=== PATIENT | male | born 1985 | race African-American/Black ===

== ENCOUNTER 2023-08-27 14:12 | Inpatient (IN) ==
--- NOTE | 2023-08-27 14:18 | EKG ---
Test Reason : tachycardia Blood Pressure : */* mmHG Vent. Rate : 119 BPM Atrial Rate : 119 BPM P-R Int : 124 ms QRS Dur : 80 ms QT Int : 330 ms P-R-T Axes : 76 82 26 degrees QTc Int : 464 ms Sinus tachycardia Minimal voltage criteria for LVH, may be normal variant ( [place] ) Borderline ECG No previous ECGs available Confirmed by Edis Greco MD ([id number]) on 08/27/2023 2:44:51 PM Referred By: Confirmed By: Edis Greco MD
[2023-08-27 14:26] VITALS: BMI 20.8
--- NOTE | 2023-08-27 14:35 | DR.DING ---
HPI Time Seen Time Seen by Provider: 08/27/23 14:27 PCP Primary Care Physician: NFD Complaint Chief Complaint Doctors Comments: 29-year-old male brought in for evaluation. Patient with a history of drug misuse, clean for the past 2+. Per family patie nt stayed up all last night, having jerking activity. Patient denied drug use to them and to the triage nurse. He now admits to taking "Moly". Denies any pain. Denies recent illness, no fever, chills or URI symptoms. Denies any bowel or bladder issues. Chief Complaint:: pt brought by family stated he is under the influence of drugs but they are unsure what he has done or taken. Pt reports the pt has been awake all night, hallucinating, and not acting like himself. pt has hx of substance abuse but denies taking anything at this time. COVID-19 Coronavirus risk:travel/contact w/high risk person: No Has patient experienced Coronavirus symptoms: No Reviewed Nurses Notes Review: Yes Source History Provided: Patient and Family Member Mode of Arrival Mode of Arrival: Ambulatory Timing Onset of Chief Complaint: 08/26/23 PMH PMH Past Medical History: Yes Past Medical History: Anxiety and Hypertension Past Surgical History: No Family History History of Family Medical Conditions: No Social History Does patient currently use any type of tobacco product: Yes Have you used tobacco products in the last 12 months: Yes Type of Tobacco Use: Cigars Alcohol Use: DAILY Do you use any recreational Drugs:: No Lives With: Family Lives Where: Home Travel Risk Coronavirus risk:travel/contact w/high risk person: No Has patient experienced Coronavirus symptoms: No Infectious screening Have you traveled outside the country in the last 6 months?: No Isolation: Standard ROS Review of Systems Constitutional: No Symptoms Reported Eyes: No Symptoms Reported ENTM: No Symptoms Reported Respiratoy: Short of Breath Cardiovascular: No Symptoms Reported Gastrointestinal/Abdominal: No Symptoms Reported Genitourinary: No Symptoms Reported Neurological: No Symptoms Reported Musculoskeletal: Muscle Pain (twitching) Integumentary: No Symptoms Reported Hematologic/Lymphatic: No Symptoms Reported All Other Systems: Reviewed and Negative PE Vital signs Vitals: Vital Signs Temperature 98.3 F Pulse Rate 114 Pulse Rate 112 Pulse Rate 150 Pulse Rate 128 Pulse Rate 105 Pulse Rate 103 Pulse Rate 110 Pulse Rate 124 Pulse Rate 121 Respiratory Rate 57 Respiratory Rate 55 Respiratory Rate 56 Respiratory Rate 48 Respiratory Rate 46 Respiratory Rate 41 Respiratory Rate 51 Respiratory Rate 24 Respiratory Rate 44 Blood Pressure 161/87 Blood Pressure 128/88 O2 Sat by Pulse Oximetry 96 O2 Sat by Pulse Oximetry 94 O2 Sat by Pulse Oximetry 96 General General Appearance: Alert and In No Apparent Distress Head Head Exam: Normal Inspection, Atraumatic and Normocephalic Eyes Eye exam: PERRL and EOMI ENT ENT Exam: Normal Oropharynx and Mucous Membranes Moist Neck Neck Exam: Normal Inspection; negative Tenderness Respiratory Respiratory Exam: Normal Lung Sounds Bilat; negative Accessory Muscle Use or Respiratory Distress Cardiovascular Cardiovascular Exam: Regular Rate, Normal Rhythm and Normal Heart Sounds Abdominal Exam Abdominal Exam: Normal Bowel Sounds and Soft; negative Tenderness Extremities Extremities Exam: Normal Inspection; negative Tenderness or Edema Neurologic Neurological Exam: Alert, Oriented X3 and CN II-XII Intact; negative Motor Sensory Deficit Psychiatric Psychiatric Exam: Flat Affect Skin Skin Exam: Warm and Dry COURSE Treatment Treatment: 37 y/o male brought in by family for evaluation. Admits to taking Moly last pm. History of drug misuse in the past, reportedly clean for 2 years. Patient with some jerking activity, no true seizure. Presented for medical clearance prior to transfer to a psychiatric facility for drug usage. Workup i nitiated. Patient given IV fluids, IV Ativan 1 mg. 1510 -Labs overall acceptable, except for creatinine kinase. Has a markedly elevated level of 3,310, consistent with acute rhabdomyolysis, probably related to recent drug usage. Patient not medically cleared for transfer to any behavioral facilities. Recommend admission for IV hydration, and prevention of kidney injury. Discussed with on-call physician, Dr. Ventura, she accepts the admission. ROR Labs Reviewed Laboratory Results Reviewed?: Yes 08/27/23 14:25 08/27/23 14:25 Laboratory: WBC 8.5 X10^3/uL (3.6-10.0) 08/27/23 14:25 RBC 3.80 X10^6/uL (4.7-6.0) L 08/27/23 14:25 Hgb 10.6 g/dL (13.5-18.0) L 08/27/23 14:25 Hct 33.1 % (42.0-54.0) L 08/27/23 14:25 MCV 87.1 fL (80.0-100.0) 08/27/23 14:25 MCH 27.9 pg (27.0-34.0) 08/27/23 14:25 MCHC 32.0 g/dL (33.0-35.0) L 08/27/23 14:25 RDW 17.5 % (11.6-16.5) H 08/27/23 14:25 Plt Count 358 X10^3/uL (150.0-450.0) 08/27/23 14:25 MPV 7.6 fL (7.4-11.0) 08/27/23 14:25 Neut % (Auto) 68.5 % (42.0-75.0) 08/27/23 14:25 Lymph % (Auto) 17.1 % (21.0-51.0) L 08/27/23 14:25 [place] % (Auto) 13.5 % (0.0-13.0) H 08/27/23 14:25 Eos % (Auto) 0.1 % (0.9-2.9) L 08/27/23 14:25 Baso % (Auto) 0.8 % (0.2-1.0) 08/27/23 14:25 Neut # (Auto) 5.8 x10^3/uL (2.2-4.8) H 08/27/23 14:25 Lymph # (Auto) 1.5 X10^3/uL (1.3-2.9) 08/27/23 14:25 [place] # (Auto) 1.2 x10^3/uL (0.3-0.8) H 08/27/23 14:25 Eos # (Auto) 0.0 x10^3/uL (0.0-0.2) 08/27/23 14:25 Baso # (Auto) 0.1 X10^3/uL (0.0-0.1) 08/27/23 14:25 Absolute Nucleated RBC 0.1 /100WBC 08/27/23 14:25 Sodium 136 mmol/L (136-145) 08/27/23 14:25 Corrected Sodium TNP 08/27/23 14:25 Potassium 3.5 mmol/L (3.5-5.1) 08/27/23 14:25 Chloride 98 mmol/L (98-107) 08/27/23 14:25 Carbon Dioxide 27.4 mmol/L (21-32) 08/27/23 14:25 BUN 13 mg/dL (7-18) 08/27/23 14:25 Creatinine 1.48 mg/dL (0.70-1.30) H 08/27/23 14:25 Est GFR (MDRD) Af Amer > 60 (>60) 08/27/23 14:25 Est GFR (MDRD) Non-Af 57 (>60) L 08/27/23 14:25 Glucose 96 mg/dL (65-99) 08/27/23 14:25 Calcium 8.8 mg/dL (8.5-10.1) 08/27/23 14:25 Corrected Calcium TNP 08/27/23 14:25 Total Bilirubin 1.40 mg/dL (0.2-1.0) H 08/27/23 14:25 AST 80 Units/L (15-37) H 08/27/23 14:25 ALT 30 Units/L (12-78) 08/27/23 14:25 Alkaline Phosphatase 76 Units/L (46-116) 08/27/23 14:25 Creatine Kinase 3310 Units/L (39-308) H 08/27/23 14:25 Total Protein 8.2 g/dL (6.4-8.2) 08/27/23 14:25 Albumin 4.1 g/dL (3.4-5.0) 08/27/23 14:25 Globulin 4.1 g/dL (2.5-4.5) 08/27/23 14:25 Albumin/Globulin Ratio 1.0 Ratio (1.1-2.1) L 08/27/23 14:25 Specimen Type Clean catch urine 08/27/23 14:18 Urine Color Dark yellow (YELLOW) 08/27/23 14:18 Urine Appearance Hazy (CLEAR) 08/27/23 14:18 Urine pH 6.0 (5.0 - 8.0) 08/27/23 14:18 Ur Specific [place] 1.020 (1.000-1.030) 08/27/23 14:18 Urine Protein 3+ (NEGATIVE) 08/27/23 14:18 Urine Glucose (UA) Negative (NEGATIVE) 08/27/23 14:18 Urine Ketones 1+ (NEGATIVE) 08/27/23 14:18 Urine Blood 2+ (NEGATIVE) 08/27/23 14:18 Urine Nitrite Negative (NEGATIVE) 08/27/23 14:18 Urine Bilirubin 1+ (NEGATIVE) 08/27/23 14:18 Urine Urobilinogen 3+ (NORMAL) 08/27/23 14:18 Ur Leukocyte Esterase 1+ (NEGATIVE) 08/27/23 14:18 Urine RBC 5-10 /HPF (0-3) A 08/27/23 14:18 Urine WBC 0-2 /HPF (0-5) 08/27/23 14:18 Ur Squamous Epith Cells Numerous /HPF (NEGATIVE) 08/27/23 14:18 Amorphous Sediment 2+ /HPF (NEGATIVE) 08/27/23 14:18 Urine Bacteria 1+ /HPF (NEGATIVE) 08/27/23 14:18 Urine Mucus Moderate /HPF (NEGATIVE) 08/27/23 14:18 Ur Culture Indicated? No/not indicated 08/27/23 14:18 Salicylates < 2.8 mg/dL (2.8-20) L 08/27/23 14:25 Urine Opiates Screen Negative (NEG=<300) 08/27/23 14:18 Urine Methadone Screen Negative (NEG=<300) 08/27/23 14:18 Acetaminophen 0.0 ug/mL (10-30) L 08/27/23 14:25 Ur Barbiturates Screen Negative (NEG=<200) 08/27/23 14:18 Ur Phencyclidine Scrn Negative (NEG=<25) 08/27/23 14:18 Ur Amphetamines Screen Negative (NEG=<1000) 08/27/23 14:18 U Benzodiazepines Scrn Negative (NEG=<200) 08/27/23 14:18 Urine Cocaine Screen Negative (NEG=<300) 08/27/23 14:18 U Marijuana (THC) Screen Negative (NEG=<50) 08/27/23 14:18 Ethyl Alcohol mg/dL < 3.0 mg/dL (0-19.9) 08/27/23 14:25 Elevated CK, 3,310. EKG Rate: 119 [place]: Normal Rhythm: ST ST: Nonsp Opioid Opioid Risk Tool Age (Vincent box if 16-45): Yes History of Preadolescent Sexual Abuse: No Total: 1 Total Score Risk Category: Low Risk Copyright: June LR predicting aberrant behaviors Discharge Plan Diagnosis Discharge Problem: Rhabdomyolysis, Illicit drug use Discharge Plan Patient Disposition: 09 ADMITTED INPATIENT Condition: Stable Orders to Discharge Patient Discharge Orders: Transfer (Routine); Ordered 08/27/23 Ordered By: Blue Rodriguez
[2023-08-27 14:40] LABS: BASOPHILS # (AUTO) 0.1 X10^3/uL (0.0-0.1); BASOPHILS % (AUTO) 0.8 % (0.2-1.0); EOSINOPHILS % (AUTO) 0.1 % (0.9-2.9); HEMATOCRIT 33.1 % (42.0-54.0); HEMOGLOBIN 10.6 g/dL (13.5-18.0); LYMPHOCYTES # (AUTO) 1.5 X10^3/uL (1.3-2.9); LYMPHOCYTES % (AUTO) 17.1 % (21.0-51.0); MEAN CORPUSCULAR HEMOGLOBIN 27.9 pg (27.0-34.0); MEAN CORPUSCULAR VOLUME 87.1 fL (80.0-100.0); MEAN PLATELET VOLUME 7.6 fL (7.4-11.0); MONOCYTES # (AUTO) 1.2 x10^3/uL (0.3-0.8); MONOCYTES % (AUTO) 13.5 % (0.0-13.0); NEUTROPHILS # (AUTO) 5.8 x10^3/uL (2.2-4.8); NEUTROPHILS % (AUTO) 68.5 % (42.0-75.0); PLATELET COUNT 358 X10^3/uL (150.0-450.0); RED CELL DISTRIBUTION WIDTH 17.5 % (11.6-16.5); WHITE BLOOD COUNT 8.5 X10^3/uL (3.6-10.0)
[2023-08-27] MEDS: ATIVAN INJ 2 MG VIAL IVP ONE (14:41)
[2023-08-27 14:42] LABS: BILIRUBIN,URINE 1+ (NEGATIVE); BLOOD/HEMOGLOBIN,URINE 2+ (NEGATIVE); GLUCOSE, URINE NEGATIVE (NEGATIVE); KETONES,URINE 1+ (NEGATIVE); LEUKOCYTE ESTERASE ,URINE 1+ (NEGATIVE); NITRITES,URINE NEGATIVE (NEGATIVE); PROTEIN,URINE 3+ (NEGATIVE); UROBILINOGEN,URINE 3+ (NORMAL)
[2023-08-27 14:45] LABS: APPEARANCE,URINE HAZY (CLEAR); COLOR,URINE DARK YELLOW (YELLOW)
[2023-08-27] MEDS: ATIVAN INJ 2 MG VIAL ONE (14:45)
[2023-08-27 14:58] LABS: SALICYLATE < 2.8 mg/dL (2.8-20)
[2023-08-27 14:58] LABS: BACTERIA,URINE 1+ /HPF (NEGATIVE); SQUAMOUS EPITHELIAL CELL,UR NUMEROUS /HPF (NEGATIVE)
[2023-08-27 15:00] LABS: ALANINE AMINOTRANSFERASE 30 Units/L (12-78); ALBUMIN 4.1 g/dL (3.4-5.0); ALKALINE PHOSPHATASE 76 Units/L (46-116); ASPARTATE AMINO TRANSFERASE 80 Units/L (15-37); BLOOD UREA NITROGEN 13 mg/dL (7-18); CALCIUM 8.8 mg/dL (8.5-10.1); CARBON DIOXIDE 27.4 mmol/L (21-32); CHLORIDE 98 mmol/L (98-107); CREATININE 1.48 mg/dL (0.70-1.30); GLUCOSE 96 mg/dL (65-99); POTASSIUM 3.5 mmol/L (3.5-5.1); SODIUM 136 mmol/L (136-145); TOTAL PROTEIN 8.2 g/dL (6.4-8.2); eGFR NON BLACK RACES 57 (>60)
[2023-08-27 15:01] LABS: BLOOD ALCOHOL < 3.0 mg/dL (0-19.9)
[2023-08-27] MEDS ORDERED: NS 1,000 ML IV 1,000 ML ONE ×2 (15:20→16:08)
[2023-08-27] MEDS: NS 1,000 ML IV 1,000 ML IV ONE ×2 (15:37→17:10)
[2023-08-27] MEDS ORDERED: CONSULT PHARMACY - POTASSIUM & MAGNESIUM XX SCH (18:00)
[2023-08-27] MEDS: ATIVAN INJ 2 MG VIAL IVP PRN (18:10)
[2023-08-27] MEDS: NS 1,000 ML IV 1,000 ML IV SCH (18:39)
[2023-08-27] MEDS ORDERED: MAG-OX TAB PO SCH (21:00)
[2023-08-27] MEDS ORDERED: K-DUR TAB 20 MEQ PO SCH (21:00)
[2023-08-27] MEDS: MAGNESIUM SULFATE 1 GRAM/100 mL PREMIX 1 G/100 ML BAG IV SCH (21:06)
[2023-08-27] MEDS: K-RIDER 10 MEQ/100 ML WATER 10 MEQ/100 ML BAG IV SCH (21:06)
[2023-08-28 05:12] LABS: BASOPHILS # (AUTO) 0.1 X10^3/uL (0.0-0.1); BASOPHILS % (AUTO) 1.1 % (0.2-1.0); EOSINOPHILS % (AUTO) 0.4 % (0.9-2.9); HEMATOCRIT 30.2 % (42.0-54.0); HEMOGLOBIN 9.9 g/dL (13.5-18.0); LYMPHOCYTES # (AUTO) 1.4 X10^3/uL (1.3-2.9); LYMPHOCYTES % (AUTO) 19.5 % (21.0-51.0); MEAN CORPUSCULAR HEMOGLOBIN 28.6 pg (27.0-34.0); MEAN CORPUSCULAR HGB CONC 32.9 g/dL (33.0-35.0); MEAN PLATELET VOLUME 7.7 fL (7.4-11.0); MONOCYTES # (AUTO) 1.1 x10^3/uL (0.3-0.8); MONOCYTES % (AUTO) 15.8 % (0.0-13.0); NEUTROPHILS # (AUTO) 4.4 x10^3/uL (2.2-4.8); NEUTROPHILS % (AUTO) 63.2 % (42.0-75.0); PLATELET COUNT 333 X10^3/uL (150.0-450.0); RED BLOOD COUNT 3.47 X10^6/uL (4.7-6.0); RED CELL DISTRIBUTION WIDTH 17.3 % (11.6-16.5)
[2023-08-28 05:35] LABS: ALANINE AMINOTRANSFERASE 26 Units/L (12-78); ALBUMIN 3.3 g/dL (3.4-5.0); ALKALINE PHOSPHATASE 67 Units/L (46-116); ASPARTATE AMINO TRANSFERASE 64 Units/L (15-37); BLOOD UREA NITROGEN 11 mg/dL (7-18); CALCIUM 8.2 mg/dL (8.5-10.1); CARBON DIOXIDE 24.4 mmol/L (21-32); CHLORIDE 105 mmol/L (98-107); COR CA(FOR HYPOALB) 8.8 mg/dL (8.5-10.1); CREATININE 1.22 mg/dL (0.70-1.30); GLUCOSE 83 mg/dL (65-99); MAGNESIUM 2.3 mg/dL (2.0-2.9); POTASSIUM 4.2 mmol/L (3.5-5.1); SODIUM 139 mmol/L (136-145); TOTAL PROTEIN 6.9 g/dL (6.4-8.2); eGFR NON BLACK RACES > 60 (>60)
[2023-08-28 05:37] LABS: CREATINE KINASE 2621 Units/L (39-308)
[2023-08-28 09:06] LABS: RETICULOCYTE % 1.04 % (0.8-2.2)
--- NOTE | 2023-08-28 09:31 | DR.H&P ---
H&P History & Physical for Day of: H&P Date: 08/28/23 Chief Complaint Chief Complaint: AMS, behavior change Allergies Allergies Allergy/AdvReac Type Severity Reaction Status Date / Time No Known Allergies Allergy Verified 08/27/23 20:48 History of Present Illness History of Present Illness: Mr Davila is a 37y/o male with a PMH of substance use and anxiety was brought in my family due to patient actin different, hallucinating and anxious. He initially denied taking any drugs and reports being clean for 2 years. He later told the staff that he took "Moly". He states he was admitted at a detox facility before due to ETOH abuse. He also reports having anemia and has had work up including EGD but he does not recall the results. He reports noticing blood in his stools sometimes. Denies N/V/D or abdominal pain today. He was trying to get out and pull his IV yesterday but got a dose of ativan. He has been calm since then. Patient was noted to have elevated CK in the ER and was admitted for hydration. His CK today is 2621. Labs/imaging reviewed -Hgb 9.9 BUN/Cr:04/03. CK 2621 -UDS negative. Plan: continue hydration with NS. Will check anemia panel and FOBT. Ativan prn for anxiety. Replace electrolytes prn. Monitor AM labs/imaging. Past Medical History Past Medical History: Anxiety and Hypertension Social History Does patient currently use any type of tobacco product: Yes Have you used tobacco products in the last 12 months: Yes Type of Tobacco Use: Cigars Alcohol Use: DAILY Drug Use: Other Medications Home Medications: Home Medications Medication Instructions Recorded Confirmed Type NK 08/27/23 08/27/23 History Labs 08/28/23 04:30 08/28/23 04:30 Labs: Laboratory WBC 7.0 X10^3/uL (3.6-10.0) 08/28/23 04:30 RBC 3.47 X10^6/uL (4.7-6.0) L 08/28/23 04:30 Hgb 9.9 g/dL (13.5-18.0) L 08/28/23 04:30 Hct 30.2 % (42.0-54.0) L 08/28/23 04:30 MCV 87.0 fL (80.0-100.0) 08/28/23 04:30 MCH 28.6 pg (27.0-34.0) 08/28/23 04:30 MCHC 32.9 g/dL (33.0-35.0) L 08/28/23 04:30 RDW 17.3 % (11.6-16.5) H 08/28/23 04:30 Plt Count 333 X10^3/uL (150.0-450.0) 08/28/23 04:30 MPV 7.7 fL (7.4-11.0) 08/28/23 04:30 Neut % (Auto) 63.2 % (42.0-75.0) 08/28/23 04:30 Lymph % (Auto) 19.5 % (21.0-51.0) L 08/28/23 04:30 [place] % (Auto) 15.8 % (0.0-13.0) H 08/28/23 04:30 Eos % (Auto) 0.4 % (0.9-2.9) L 08/28/23 04:30 Baso % (Auto) 1.1 % (0.2-1.0) H 08/28/23 04:30 Neut # (Auto) 4.4 x10^3/uL (2.2-4.8) 08/28/23 04:30 Lymph # (Auto) 1.4 X10^3/uL (1.3-2.9) 08/28/23 04:30 [place] # (Auto) 1.1 x10^3/uL (0.3-0.8) H 08/28/23 04:30 Eos # (Auto) 0.0 x10^3/uL (0.0-0.2) 08/28/23 04:30 Baso # (Auto) 0.1 X10^3/uL (0.0-0.1) 08/28/23 04:30 Absolute Nucleated RBC 0.1 /100WBC 08/28/23 04:30 Absolute Retic 0.0366 10^6/uL 08/28/23 04:30 Percent Retic 1.04 % (0.8-2.2) 08/28/23 04:30 Sodium 139 mmol/L (136-145) 08/28/23 04:30 Corrected Sodium TNP 08/28/23 04:30 Potassium 4.2 mmol/L (3.5-5.1) 08/28/23 04:30 Chloride 105 mmol/L (98-107) 08/28/23 04:30 Carbon Dioxide 24.4 mmol/L (21-32) 08/28/23 04:30 BUN 11 mg/dL (7-18) 08/28/23 04:30 Creatinine 1.22 mg/dL (0.70-1.30) 08/28/23 04:30 Est GFR (MDRD) Af Amer > 60 (>60) 08/28/23 04:30 Est GFR (MDRD) Non-Af > 60 (>60) 08/28/23 04:30 Glucose 83 mg/dL (65-99) 08/28/23 04:30 Calcium 8.2 mg/dL (8.5-10.1) L 08/28/23 04:30 Corrected Calcium 8.8 mg/dL (8.5-10.1) 08/28/23 04:30 Magnesium 2.3 mg/dL (2.0-2.9) 08/28/23 04:30 Total Bilirubin 1.40 mg/dL (0.2-1.0) H 08/28/23 04:30 AST 64 Units/L (15-37) H 08/28/23 04:30 ALT 26 Units/L (12-78) 08/28/23 04:30 Alkaline Phosphatase 67 Units/L (46-116) 08/28/23 04:30 Creatine Kinase 2621 Units/L (39-308) H 08/28/23 04:30 Total Protein 6.9 g/dL (6.4-8.2) 08/28/23 04:30 Albumin 3.3 g/dL (3.4-5.0) L 08/28/23 04:30 Globulin 3.6 g/dL (2.5-4.5) 08/28/23 04:30 Albumin/Globulin Ratio 0.9 Ratio (1.1-2.1) L 08/28/23 04:30 Specimen Type Clean catch urine 08/27/23 14:18 Urine Color Dark yellow (YELLOW) 08/27/23 14:18 Urine Appearance Hazy (CLEAR) 08/27/23 14:18 Urine pH 6.0 (5.0 - 8.0) 08/27/23 14:18 Ur Specific [place] 1.020 (1.000-1.030) 08/27/23 14:18 Urine Protein 3+ (NEGATIVE) 08/27/23 14:18 Urine Glucose (UA) Negative (NEGATIVE) 08/27/23 14:18 Urine Ketones 1+ (NEGATIVE) 08/27/23 14:18 Urine Blood 2+ (NEGATIVE) 08/27/23 14:18 Urine Nitrite Negative (NEGATIVE) 08/27/23 14:18 Urine Bilirubin 1+ (NEGATIVE) 08/27/23 14:18 Urine Urobilinogen 3+ (NORMAL) 08/27/23 14:18 Ur Leukocyte Esterase 1+ (NEGATIVE) 08/27/23 14:18 Urine RBC 5-10 /HPF (0-3) A 08/27/23 14:18 Urine WBC 0-2 /HPF (0-5) 08/27/23 14:18 Ur Squamous Epith Cells Numerous /HPF (NEGATIVE) 08/27/23 14:18 Amorphous Sediment 2+ /HPF (NEGATIVE) 08/27/23 14:18 Urine Bacteria 1+ /HPF (NEGATIVE) 08/27/23 14:18 Urine Mucus Moderate /HPF (NEGATIVE) 08/27/23 14:18 Ur Culture Indicated? No/not indicated 08/27/23 14:18 Salicylates < 2.8 mg/dL (2.8-20) L 08/27/23 14:25 Urine Opiates Screen Negative (NEG=<300) 08/27/23 14:18 Urine Methadone Screen Negative (NEG=<300) 08/27/23 14:18 Acetaminophen 0.0 ug/mL (10-30) L 08/27/23 14:25 Ur Barbiturates Screen Negative (NEG=<200) 08/27/23 14:18 Ur Phencyclidine Scrn Negative (NEG=<25) 08/27/23 14:18 Ur Amphetamines Screen Negative (NEG=<1000) 08/27/23 14:18 U Benzodiazepines Scrn Negative (NEG=<200) 08/27/23 14:18 Urine Cocaine Screen Negative (NEG=<300) 08/27/23 14:18 U Marijuana (THC) Screen Negative (NEG=<50) 08/27/23 14:18 Ethyl Alcohol mg/dL < 3.0 mg/dL (0-19.9) 08/27/23 14:25 Review of Systems Constitutional: No Symptoms Reported Eyes: No Symptoms Reported ENT: No Symptoms Reported Respiratory: No Symptoms Reported Cardiovascular: No Symptoms Reported Gastrointestinal: No Symptoms Reported Genitourinary: No Symptoms Reported Musculoskeletal: No Symptoms Reported Skin: No Symptoms Reported Neurological: Confusion Physical Exam Vital Signs: Vital Signs Temperature 98.4 F Temperature 98.3 F Pulse Rate [Left] 82 Pulse Rate [Left] 98 Respiratory Rate 18 Respiratory Rate 22 Blood Pressure [Left Arm] 143/73 Blood Pressure [Left Arm] 151/91 O2 Sat by Pulse Oximetry 93 O2 Sat by Pulse Oximetry 98 Oriented: Normal Eyes: Normal Throat: Normal Respiratory: Clear Throughout Cardiovascular: Normal Auscultation: Bowel Sounds: Normal Palpation: Normal Tenderness: Normal Skin: Normal Musculoskeletal: Normal Psychiatric: Normal Mood Description: Calm Affect: Normal Speech Pattern: Clear and Appropriate Assessment/Plan (1) Rhabdomyolysis: Qualifiers: Rhabdomyolysis type: non-traumatic Qualified Code(s): M62.82 - Rhabdomyolysis Status: Acute (2) Illicit drug use: Status: Acute (3) Anemia: Qualifiers: Anemia type: unspecified type Qualified Code(s): D64.9 - Anemia, unspecified Status: Acute (4) Anxiety: Status: Acute (5) Polysubstance abuse: Status: Acute Review H&P Reviewed: Yes Patient was examined?: Yes
[2023-08-29 05:10] LABS: BASOPHILS % (AUTO) 0.6 % (0.2-1.0); EOSINOPHILS # (AUTO) 0.1 x10^3/uL (0.0-0.2); EOSINOPHILS % (AUTO) 1.6 % (0.9-2.9); HEMATOCRIT 28.7 % (42.0-54.0); HEMOGLOBIN 9.4 g/dL (13.5-18.0); LYMPHOCYTES # (AUTO) 1.3 X10^3/uL (1.3-2.9); LYMPHOCYTES % (AUTO) 24.1 % (21.0-51.0); MEAN CORPUSCULAR HEMOGLOBIN 28.5 pg (27.0-34.0); MEAN CORPUSCULAR HGB CONC 32.6 g/dL (33.0-35.0); MEAN CORPUSCULAR VOLUME 87.4 fL (80.0-100.0); MEAN PLATELET VOLUME 7.9 fL (7.4-11.0); MONOCYTES # (AUTO) 0.7 x10^3/uL (0.3-0.8); MONOCYTES % (AUTO) 12.4 % (0.0-13.0); NEUTROPHILS # (AUTO) 3.4 x10^3/uL (2.2-4.8); NEUTROPHILS % (AUTO) 61.3 % (42.0-75.0); PLATELET COUNT 302 X10^3/uL (150.0-450.0); RED BLOOD COUNT 3.29 X10^6/uL (4.7-6.0); RED CELL DISTRIBUTION WIDTH 17.4 % (11.6-16.5); WHITE BLOOD COUNT 5.5 X10^3/uL (3.6-10.0)
[2023-08-29 05:21] LABS: ALANINE AMINOTRANSFERASE 24 Units/L (12-78); ALBUMIN 2.9 g/dL (3.4-5.0); ALKALINE PHOSPHATASE 83 Units/L (46-116); ASPARTATE AMINO TRANSFERASE 38 Units/L (15-37); BLOOD UREA NITROGEN 8 mg/dL (7-18); CALCIUM 7.7 mg/dL (8.5-10.1); CHLORIDE 108 mmol/L (98-107); COR CA(FOR HYPOALB) 8.6 mg/dL (8.5-10.1); CREATININE 1.07 mg/dL (0.70-1.30); GLUCOSE 110 mg/dL (65-99); POTASSIUM 3.4 mmol/L (3.5-5.1); SODIUM 142 mmol/L (136-145); TOTAL PROTEIN 6.3 g/dL (6.4-8.2); eGFR NON BLACK RACES > 60 (>60)
[2023-08-29] MEDS: K-DUR TAB 20 MEQ PO SCH (08:53)
--- NOTE | 2023-08-29 09:23 | PCM.PROG ---
Progress Note Progress Note for Day of Date of Exam: 08/29/23 Subjective Subjective: Pt is a 37y/o male with a PMH of substance use and anxiety admitted for rhabdomyolysis and polysubstance abuse. This morning he is standing up next to bed. No acute events overnight. He reports feeling better, no acute concerns. Labs/imaging reviewed -Wbc 5.5, Hgb 9.4, Plt 302, Na 142, K 3.4, Creatinine 1.07, Glucose 110, CK 2621>1612 -UDS negative. Plan: continue hydration with NS. Will give 1L Normal saline bolus and continue with IVF. Anemia panel revealed iron deficiency, will order iron infusion today. FOBT pending. Ativan prn for anxiety. Replace electrolytes prn. Otherwise, continue with current treatment plan. Monitor AM labs/imaging. Past Medical Family Social History Allergies: Allergies No Known Allergies Allergy (Verified 08/27/23 20:48) Review of Systems ROS changes noted: see HPI Vital Signs and I&O's Vital Signs: Vital Signs Temperature 97.6 F Temperature 97.7 F Pulse Rate 83 Pulse Rate 78 Respiratory Rate 18 Respiratory Rate 17 Blood Pressure 147/85 Blood Pressure 152/72 O2 Sat by Pulse Oximetry 98 O2 Sat by Pulse Oximetry 96 Intake and Output: Intake & Output 08/26/23 08/27/23 08/28/23 08/29/23 23:59 23:59 23:59 23:59 Intake Total 2623 / 2623 5478 / 5478 1060 / 1060 Balance 2623 / 2623 5478 / 5478 1060 / 1060 Physical Exam Oriented: Normal Eyes: Normal Throat: Normal Respiratory: Normal Cardiovascular: Normal Auscultation: Bowel Sounds: Normal Tenderness: Normal Skin: Normal Musculoskeletal: Normal Psychiatric: Normal Mood Description: Calm Affect: Normal Speech Pattern: Clear and Appropriate Laboratory and Diagnostics 08/29/23 04:15 08/29/23 04:15 Labs: Laboratory WBC 5.5 X10^3/uL (3.6-10.0) 08/29/23 04:15 RBC 3.29 X10^6/uL (4.7-6.0) L 08/29/23 04:15 Hgb 9.4 g/dL (13.5-18.0) L 08/29/23 04:15 Hct 28.7 % (42.0-54.0) L 08/29/23 04:15 MCV 87.4 fL (80.0-100.0) 08/29/23 04:15 MCH 28.5 pg (27.0-34.0) 08/29/23 04:15 MCHC 32.6 g/dL (33.0-35.0) L 08/29/23 04:15 RDW 17.4 % (11.6-16.5) H 08/29/23 04:15 Plt Count 302 X10^3/uL (150.0-450.0) 08/29/23 04:15 MPV 7.9 fL (7.4-11.0) 08/29/23 04:15 Neut % (Auto) 61.3 % (42.0-75.0) 08/29/23 04:15 Lymph % (Auto) 24.1 % (21.0-51.0) 08/29/23 04:15 [place] % (Auto) 12.4 % (0.0-13.0) 08/29/23 04:15 Eos % (Auto) 1.6 % (0.9-2.9) 08/29/23 04:15 Baso % (Auto) 0.6 % (0.2-1.0) 08/29/23 04:15 Neut # (Auto) 3.4 x10^3/uL (2.2-4.8) 08/29/23 04:15 Lymph # (Auto) 1.3 X10^3/uL (1.3-2.9) 08/29/23 04:15 [place] # (Auto) 0.7 x10^3/uL (0.3-0.8) 08/29/23 04:15 Eos # (Auto) 0.1 x10^3/uL (0.0-0.2) 08/29/23 04:15 Baso # (Auto) 0.0 X10^3/uL (0.0-0.1) 08/29/23 04:15 Absolute Nucleated RBC 0.0 /100WBC 08/29/23 04:15 Absolute Retic 0.0366 10^6/uL 08/28/23 04:30 Percent Retic 1.04 % (0.8-2.2) 08/28/23 04:30 Sodium 142 mmol/L (136-145) 08/29/23 04:15 Corrected Sodium TNP 08/29/23 04:15 Potassium 3.4 mmol/L (3.5-5.1) L 08/29/23 04:15 Chloride 108 mmol/L (98-107) H 08/29/23 04:15 Carbon Dioxide 26.0 mmol/L (21-32) 08/29/23 04:15 BUN 8 mg/dL (7-18) 08/29/23 04:15 Creatinine 1.07 mg/dL (0.70-1.30) 08/29/23 04:15 Est GFR (MDRD) Af Amer > 60 (>60) 08/29/23 04:15 Est GFR (MDRD) Non-Af > 60 (>60) 08/29/23 04:15 Glucose 110 mg/dL (65-99) H 08/29/23 04:15 Calcium 7.7 mg/dL (8.5-10.1) L 08/29/23 04:15 Corrected Calcium 8.6 mg/dL (8.5-10.1) 08/29/23 04:15 Magnesium 2.3 mg/dL (2.0-2.9) 08/28/23 04:30 Iron 47 ug/dL (50-175) L 08/28/23 04:30 TIBC 361 ug/dL (250-450) 08/28/23 04:30 Transferrin 270 mg/dL (202-364) 08/28/23 04:30 Ferritin 16 ng/mL (26-388) L 08/28/23 04:30 Total Bilirubin 0.40 mg/dL (0.2-1.0) 08/29/23 04:15 AST 38 Units/L (15-37) H 08/29/23 04:15 ALT 24 Units/L (12-78) 08/29/23 04:15 Alkaline Phosphatase 83 Units/L (46-116) 08/29/23 04:15 Creatine Kinase 1612 Units/L (39-308) H 08/29/23 04:15 Total Protein 6.3 g/dL (6.4-8.2) L 08/29/23 04:15 Albumin 2.9 g/dL (3.4-5.0) L 08/29/23 04:15 Globulin 3.4 g/dL (2.5-4.5) 08/29/23 04:15 Albumin/Globulin Ratio 0.9 Ratio (1.1-2.1) L 08/29/23 04:15 Vitamin B12 405 pg/mL (193-986) 08/28/23 04:30 Folate 11.2 ng/mL (>8.6) 08/28/23 04:30 Specimen Type Clean catch urine 08/27/23 14:18 Urine Color Dark yellow (YELLOW) 08/27/23 14:18 Urine Appearance Hazy (CLEAR) 08/27/23 14:18 Urine pH 6.0 (5.0 - 8.0) 08/27/23 14:18 Ur Specific [place] 1.020 (1.000-1.030) 08/27/23 14:18 Urine Protein 3+ (NEGATIVE) 08/27/23 14:18 Urine Glucose (UA) Negative (NEGATIVE) 08/27/23 14:18 Urine Ketones 1+ (NEGATIVE) 08/27/23 14:18 Urine Blood 2+ (NEGATIVE) 08/27/23 14:18 Urine Nitrite Negative (NEGATIVE) 08/27/23 14:18 Urine Bilirubin 1+ (NEGATIVE) 08/27/23 14:18 Urine Urobilinogen 3+ (NORMAL) 08/27/23 14:18 Ur Leukocyte Esterase 1+ (NEGATIVE) 08/27/23 14:18 Urine RBC 5-10 /HPF (0-3) A 08/27/23 14:18 Urine WBC 0-2 /HPF (0-5) 08/27/23 14:18 Ur Squamous Epith Cells Numerous /HPF (NEGATIVE) 08/27/23 14:18 Amorphous Sediment 2+ /HPF (NEGATIVE) 08/27/23 14:18 Urine Bacteria 1+ /HPF (NEGATIVE) 08/27/23 14:18 Urine Mucus Moderate /HPF (NEGATIVE) 08/27/23 14:18 Ur Culture Indicated? No/not indicated 08/27/23 14:18 Salicylates < 2.8 mg/dL (2.8-20) L 08/27/23 14:25 Urine Opiates Screen Negative (NEG=<300) 08/27/23 14:18 Urine Methadone Screen Negative (NEG=<300) 08/27/23 14:18 Acetaminophen 0.0 ug/mL (10-30) L 08/27/23 14:25 Ur Barbiturates Screen Negative (NEG=<200) 08/27/23 14:18 Ur Phencyclidine Scrn Negative (NEG=<25) 08/27/23 14:18 Ur Amphetamines Screen Negative (NEG=<1000) 08/27/23 14:18 U Benzodiazepines Scrn Negative (NEG=<200) 08/27/23 14:18 Urine Cocaine Screen Negative (NEG=<300) 08/27/23 14:18 U Marijuana (THC) Screen Negative (NEG=<50) 08/27/23 14:18 Ethyl Alcohol mg/dL < 3.0 mg/dL (0-19.9) 08/27/23 14:25 Plan (1) Rhabdomyolysis: Status: Acute Qualifiers: Rhabdomyolysis type: non-traumatic Qualified Code(s): M62.82 - Rhabdomyolysis (2) Illicit drug use: Status: Acute (3) Anemia: Status: Acute Qualifiers: Anemia type: unspecified type Qualified Code(s): D64.9 - Anemia, unspecified (4) Anxiety: Status: Acute (5) Polysubstance abuse: Status: Acute
[2023-08-29] MEDS: NS 1,000 ML IV 1,000 ML IV ONE (09:48)
[2023-08-29] MEDS: NS 100 ML IV 100 ML with VENOFER 400 MG IV ONE (10:50)
[2023-08-29] MEDS: CONSULT PHARMACY - POTASSIUM & MAGNESIUM XX SCH (20:19)
[2023-08-30] MEDS: COLACE CAP 100 MG PO PRN (02:36)
[2023-08-30] MEDS: MILK OF MAGNESIA PO PRN (02:40)
[2023-08-30 05:09] LABS: BASOPHILS # (AUTO) 0.1 X10^3/uL (0.0-0.1); BASOPHILS % (AUTO) 1.9 % (0.2-1.0); EOSINOPHILS # (AUTO) 0.1 x10^3/uL (0.0-0.2); EOSINOPHILS % (AUTO) 2.8 % (0.9-2.9); HEMATOCRIT 29.7 % (42.0-54.0); HEMOGLOBIN 9.6 g/dL (13.5-18.0); LYMPHOCYTES # (AUTO) 0.9 X10^3/uL (1.3-2.9); LYMPHOCYTES % (AUTO) 21.1 % (21.0-51.0); MEAN CORPUSCULAR HEMOGLOBIN 28.6 pg (27.0-34.0); MEAN CORPUSCULAR HGB CONC 32.5 g/dL (33.0-35.0); MEAN CORPUSCULAR VOLUME 87.9 fL (80.0-100.0); MONOCYTES # (AUTO) 0.5 x10^3/uL (0.3-0.8); MONOCYTES % (AUTO) 12.7 % (0.0-13.0); NEUTROPHILS # (AUTO) 2.6 x10^3/uL (2.2-4.8); NEUTROPHILS % (AUTO) 61.5 % (42.0-75.0); PLATELET COUNT 299 X10^3/uL (150.0-450.0); RED BLOOD COUNT 3.38 X10^6/uL (4.7-6.0); RED CELL DISTRIBUTION WIDTH 17.8 % (11.6-16.5); WHITE BLOOD COUNT 4.2 X10^3/uL (3.6-10.0)
[2023-08-30 05:26] LABS: ALANINE AMINOTRANSFERASE 23 Units/L (12-78); ALKALINE PHOSPHATASE 62 Units/L (46-116); ASPARTATE AMINO TRANSFERASE 26 Units/L (15-37); BLOOD UREA NITROGEN 4 mg/dL (7-18); CALCIUM 8.3 mg/dL (8.5-10.1); CARBON DIOXIDE 25.8 mmol/L (21-32); CHLORIDE 106 mmol/L (98-107); COR CA(FOR HYPOALB) 9.1 mg/dL (8.5-10.1); COR NA(FOR HYPERGLY) 143 mmol/L (136-145); CREATINE KINASE 789 Units/L (39-308); CREATININE 0.97 mg/dL (0.70-1.30); GLUCOSE 115 mg/dL (65-99); POTASSIUM 3.4 mmol/L (3.5-5.1); SODIUM 143 mmol/L (136-145); TOTAL PROTEIN 6.6 g/dL (6.4-8.2); eGFR NON BLACK RACES > 60 (>60)
[2023-08-30] MEDS ORDERED: CONSULT PHARMACY - POTASSIUM & MAGNESIUM XX SCH (06:00)
[2023-08-30] MEDS: K-DUR TAB 20 MEQ PO SCH (09:16)
[2023-08-30] MEDS: MAG-OX TAB PO SCH (09:16)
[2023-08-30 12:42] VITALS: BP 156/85; PULSE 78; RESP 16; TEMP 98.2; O2SAT 97
--- NOTE | 2023-09-02 09:41 | W.DIS.FURT ---
Summary of Discharge Discharge Summary of Date Date of Exam: 08/30/23 Admission Date Date of Admission: 08/27/23 Admission Diagnosis Patient Problems Rhabdomyolysis (Acute) M62.82 Illicit drug use (Acute) F19.90 Hospital Course: Pt is a 37y/o male with a PMH of substance use and anxiety admitted for rhabdomyolysis and polysubstance abuse. His hospital/treatment course included aggressive hydration with IV fluids. His creatinine trended down. He did have anemia panel that revealed iron deficiency anemia and did receive iron infusion. His electrolytes were repleted per protocol. Otherwise patient responded well to treatments. Symptoms significantly improved. Patient was discharged in stable condition, instructed to follow-up with PCP in 1 week. Vital Signs: Vital Signs (72 hours) 08/27/23 14:22 08/27/23 14:21 08/27/23 14:30 Temperature 98.3 F Pulse Rate 124 H 121 H 110 H Pulse Rate [Left Radial] Pulse Rate [Left] Respiratory Rate 24 44 H 51 H Blood Pressure 128/88 Blood Pressure [Left Arm] O2 Sat by Pulse Oximetry 96 Oxygen Delivery Method Room Air 08/27/23 14:44 08/27/23 14:44 08/27/23 14:45 Temperature Pulse Rate 103 H 105 H Pulse Rate [Left Radial] Pulse Rate [Left] Respiratory Rate 41 H 46 H Blood Pressure 161/87 Blood Pressure [Left Arm] O2 Sat by Pulse Oximetry 94 L 96 Oxygen Delivery Method 08/27/23 15:08 08/27/23 15:15 08/27/23 15:30 Temperature Pulse Rate 128 H 150 H 112 H Pulse Rate [Left Radial] Pulse Rate [Left] Respiratory Rate 48 H 56 H 55 H Blood Pressure Blood Pressure [Left Arm] O2 Sat by Pulse Oximetry Oxygen Delivery Method 08/27/23 15:45 08/27/23 16:01 08/27/23 17:00 Temperature Pulse Rate 114 H Pulse Rate [Left Radial] 122 H Pulse Rate [Left] Respiratory Rate 57 H 22 Blood Pressure Blood Pressure [Left Arm] 162/84 O2 Sat by Pulse Oximetry 100 Oxygen Delivery Method Room Air Room Air 08/27/23 19:00 08/27/23 19:00 08/27/23 19:30 Temperature Pulse Rate 100 H 86 Pulse Rate [Left Radial] Pulse Rate [Left] Respiratory Rate Blood Pressure Blood Pressure [Left Arm] O2 Sat by Pulse Oximetry Oxygen Delivery Method Room Air 08/27/23 20:06 08/27/23 20:30 08/27/23 20:45 Temperature 99.9 F H Pulse Rate 87 84 Pulse Rate [Left Radial] Pulse Rate [Left] Respiratory Rate 22 Blood Pressure 122/68 Blood Pressure [Left Arm] O2 Sat by Pulse Oximetry 97 96 Oxygen Delivery Method Room Air 08/27/23 20:45 08/27/23 21:00 08/27/23 21:30 Temperature Pulse Rate 81 80 80 Pulse Rate [Left Radial] Pulse Rate [Left] Respiratory Rate Blood Pressure Blood Pressure [Left Arm] O2 Sat by Pulse Oximetry 97 98 95 Oxygen Delivery Method 08/27/23 22:07 08/27/23 22:30 08/27/23 23:00 Temperature Pulse Rate 117 H 107 H 101 H Pulse Rate [Left Radial] Pulse Rate [Left] Respiratory Rate Blood Pressure Blood Pressure [Left Arm] O2 Sat by Pulse Oximetry 100 99 Oxygen Delivery Method 08/27/23 23:51 08/27/23 23:38 08/28/23 00:00 Temperature 98.7 F Pulse Rate 103 H 106 H Pulse Rate [Left Radial] Pulse Rate [Left] 103 H Respiratory Rate 20 20 Blood Pressure Blood Pressure [Left Arm] 164/84 O2 Sat by Pulse Oximetry 97 97 100 Oxygen Delivery Method Room Air Room Air 08/28/23 04:00 08/28/23 08:00 08/28/23 07:00 Temperature 98.3 F 98.4 F Pulse Rate Pulse Rate [Left Radial] Pulse Rate [Left] 98 H 82 Respiratory Rate 22 18 Blood Pressure Blood Pressure [Left Arm] 151/91 143/73 O2 Sat by Pulse Oximetry 98 98 Oxygen Delivery Method Room Air Room Air Room Air 08/28/23 12:00 08/28/23 16:00 08/28/23 19:00 Temperature 98.2 F 98.5 F Pulse Rate 76 Pulse Rate [Left Radial] Pulse Rate [Left] 83 Respiratory Rate 18 15 Blood Pressure 139/65 Blood Pressure [Left Arm] 128/64 O2 Sat by Pulse Oximetry 98 98 Oxygen Delivery Method Room Air Room Air 08/28/23 20:00 08/29/23 00:00 08/29/23 04:00 Temperature 98.7 F 98.3 F 97.7 F Pulse Rate 62 70 78 Pulse Rate [Left Radial] Pulse Rate [Left] Respiratory Rate 24 16 17 Blood Pressure 142/86 128/67 152/72 Blood Pressure [Left Arm] O2 Sat by Pulse Oximetry 92 L 98 96 Oxygen Delivery Method Room Air Room Air Room Air 08/29/23 08:09 08/29/23 07:45 08/29/23 10:50 Temperature 97.6 F 98.4 F Pulse Rate 83 81 Pulse Rate [Left Radial] Pulse Rate [Left] Respiratory Rate 18 18 Blood Pressure 147/85 158/88 Blood Pressure [Left Arm] O2 Sat by Pulse Oximetry 98 99 Oxygen Delivery Method Room Air 08/29/23 12:00 08/29/23 16:00 08/29/23 20:00 Temperature 98.4 F 98.1 F 97.9 F Pulse Rate 69 74 68 Pulse Rate [Left Radial] Pulse Rate [Left] Respiratory Rate 16 18 21 Blood Pressure 158/83 142/87 147/76 Blood Pressure [Left Arm] O2 Sat by Pulse Oximetry 97 97 98 Oxygen Delivery Method Room Air 08/29/23 19:00 08/30/23 00:00 08/30/23 04:00 Temperature 98.0 F 98.3 F Pulse Rate 61 64 Pulse Rate [Left Radial] Pulse Rate [Left] Respiratory Rate 16 18 Blood Pressure 140/91 150/84 Blood Pressure [Left Arm] O2 Sat by Pulse Oximetry 99 98 Oxygen Delivery Method Room Air Room Air Room Air 08/30/23 07:00 Temperature Pulse Rate Pulse Rate [Left Radial] Pulse Rate [Left] Respiratory Rate Blood Pressure Blood Pressure [Left Arm] O2 Sat by Pulse Oximetry Oxygen Delivery Method Room Air Labs: Laboratory Last Values WBC 4.2 X10^3/uL (3.6-10.0) 08/30/23 04:21 RBC 3.38 X10^6/uL (4.7-6.0) L 08/30/23 04:21 Hgb 9.6 g/dL (13.5-18.0) L 08/30/23 04:21 Hct 29.7 % (42.0-54.0) L 08/30/23 04:21 MCV 87.9 fL (80.0-100.0) 08/30/23 04:21 MCH 28.6 pg (27.0-34.0) 08/30/23 04:21 MCHC 32.5 g/dL (33.0-35.0) L 08/30/23 04:21 RDW 17.8 % (11.6-16.5) H 08/30/23 04:21 Plt Count 299 X10^3/uL (150.0-450.0) 08/30/23 04:21 MPV 8.0 fL (7.4-11.0) 08/30/23 04:21 Neut % (Auto) 61.5 % (42.0-75.0) 08/30/23 04:21 Lymph % (Auto) 21.1 % (21.0-51.0) 08/30/23 04:21 [place] % (Auto) 12.7 % (0.0-13.0) 08/30/23 04:21 Eos % (Auto) 2.8 % (0.9-2.9) 08/30/23 04:21 Baso % (Auto) 1.9 % (0.2-1.0) H 08/30/23 04:21 Neut # (Auto) 2.6 x10^3/uL (2.2-4.8) 08/30/23 04:21 Lymph # (Auto) 0.9 X10^3/uL (1.3-2.9) L 08/30/23 04:21 [place] # (Auto) 0.5 x10^3/uL (0.3-0.8) 08/30/23 04:21 Eos # (Auto) 0.1 x10^3/uL (0.0-0.2) 08/30/23 04:21 Baso # (Auto) 0.1 X10^3/uL (0.0-0.1) 08/30/23 04:21 Absolute Nucleated RBC 0.0 /100WBC 08/30/23 04:21 Absolute Retic 0.0366 10^6/uL 08/28/23 04:30 Percent Retic 1.04 % (0.8-2.2) 08/28/23 04:30 Sodium 143 mmol/L (136-145) 08/30/23 04:21 Corrected Sodium 143 mmol/L (136-145) 08/30/23 04:21 Potassium 3.4 mmol/L (3.5-5.1) L 08/30/23 04:21 Chloride 106 mmol/L (98-107) 08/30/23 04:21 Carbon Dioxide 25.8 mmol/L (21-32) 08/30/23 04:21 BUN 4 mg/dL (7-18) L 08/30/23 04:21 Creatinine 0.97 mg/dL (0.70-1.30) 08/30/23 04:21 Est GFR (MDRD) Af Amer > 60 (>60) 08/30/23 04:21 Est GFR (MDRD) Non-Af > 60 (>60) 08/30/23 04:21 Glucose 115 mg/dL (65-99) H 08/30/23 04:21 Calcium 8.3 mg/dL (8.5-10.1) L 08/30/23 04:21 Corrected Calcium 9.1 mg/dL (8.5-10.1) 08/30/23 04:21 Magnesium 1.9 mg/dL (2.0-2.9) L 08/30/23 04:21 Iron 47 ug/dL (50-175) L 08/28/23 04:30 TIBC 361 ug/dL (250-450) 08/28/23 04:30 Transferrin 270 mg/dL (202-364) 08/28/23 04:30 Ferritin 16 ng/mL (26-388) L 08/28/23 04:30 Total Bilirubin 0.70 mg/dL (0.2-1.0) 08/30/23 04:21 AST 26 Units/L (15-37) 08/30/23 04:21 ALT 23 Units/L (12-78) 08/30/23 04:21 Alkaline Phosphatase 62 Units/L (46-116) 08/30/23 04:21 Creatine Kinase 789 Units/L (39-308) H 08/30/23 04:21 Total Protein 6.6 g/dL (6.4-8.2) 08/30/23 04:21 Albumin 3.0 g/dL (3.4-5.0) L 08/30/23 04:21 Globulin 3.6 g/dL (2.5-4.5) 08/30/23 04:21 Albumin/Globulin Ratio 0.8 Ratio (1.1-2.1) L 08/30/23 04:21 Vitamin B12 405 pg/mL (193-986) 08/28/23 04:30 Folate 11.2 ng/mL (>8.6) 08/28/23 04:30 Specimen Type Clean catch urine 08/27/23 14:18 Urine Color Dark yellow (YELLOW) 08/27/23 14:18 Urine Appearance Hazy (CLEAR) 08/27/23 14:18 Urine pH 6.0 (5.0 - 8.0) 08/27/23 14:18 Ur Specific [place] 1.020 (1.000-1.030) 08/27/23 14:18 Urine Protein 3+ (NEGATIVE) 08/27/23 14:18 Urine Glucose (UA) Negative (NEGATIVE) 08/27/23 14:18 Urine Ketones 1+ (NEGATIVE) 08/27/23 14:18 Urine Blood 2+ (NEGATIVE) 08/27/23 14:18 Urine Nitrite Negative (NEGATIVE) 08/27/23 14:18 Urine Bilirubin 1+ (NEGATIVE) 08/27/23 14:18 Urine Urobilinogen 3+ (NORMAL) 08/27/23 14:18 Ur Leukocyte Esterase 1+ (NEGATIVE) 08/27/23 14:18 Urine RBC 5-10 /HPF (0-3) A 08/27/23 14:18 Urine WBC 0-2 /HPF (0-5) 08/27/23 14:18 Ur Squamous Epith Cells Numerous /HPF (NEGATIVE) 08/27/23 14:18 Amorphous Sediment 2+ /HPF (NEGATIVE) 08/27/23 14:18 Urine Bacteria 1+ /HPF (NEGATIVE) 08/27/23 14:18 Urine Mucus Moderate /HPF (NEGATIVE) 08/27/23 14:18 Ur Culture Indicated? No/not indicated 08/27/23 14:18 Salicylates < 2.8 mg/dL (2.8-20) L 08/27/23 14:25 Urine Opiates Screen Negative (NEG=<300) 08/27/23 14:18 Urine Methadone Screen Negative (NEG=<300) 08/27/23 14:18 Acetaminophen 0.0 ug/mL (10-30) L 08/27/23 14:25 Ur Barbiturates Screen Negative (NEG=<200) 08/27/23 14:18 Ur Phencyclidine Scrn Negative (NEG=<25) 08/27/23 14:18 Ur Amphetamines Screen Negative (NEG=<1000) 08/27/23 14:18 U Benzodiazepines Scrn Negative (NEG=<200) 08/27/23 14:18 Urine Cocaine Screen Negative (NEG=<300) 08/27/23 14:18 U Marijuana (THC) Screen Negative (NEG=<50) 08/27/23 14:18 Ethyl Alcohol mg/dL < 3.0 mg/dL (0-19.9) 08/27/23 14:25 Reason For Visit: ACUTE RHABDOMYOLYSIS Discharge Date Discharge Date: 08/30/23 Discharge Diagnosis All Active Problems Polysubstance abuse (Acute) Anxiety (Acute) Anemia (Acute) Rhabdomyolysis (Acute) Illicit drug use (Acute) Plan of Treatment: Continue with present treatment and follow up plan. Pt is to keep follow up appointment as instructed and take medications as ordered. Discharge Medications Discharge Medications: No Known Allergies Allergy (Verified 08/27/23 20:48) CONTINUE taking the following medications NK 08/27/23 [History] Discharge Disposition Assessment: No acute distress noted discharge. Discharge Plan Discharge Plan Hospital Course: Pt is a 37y/o male with a PMH of substance use and anxiety admitted for rhabdomyolysis and polysubstance abuse. His hospital/treatment course included aggressive hydration with IV fluids. His creatinine trended down. He did have anemia panel that revealed iron deficiency anemia and did receive iron infusion. His electrolytes were repleted per protocol. Otherwise patient responded well to treatments. Symptoms significantly improved. Patient was discharged in stable condition, instructed to follow-up with PCP in 1 week. Patient Disposition: 01 HOME, SELF-CARE Condition: Stable Health Concerns: Post Hospitalization: new medications and changes needed to prevent readmission or further decline. Pt educated and given instructions on all concerns. Care Plan Goals: Problem: Fluid Volume Deficit Goal: Maintain/Improved Adequate hydration. Instructions: Follow provided instructions. Follow up with primary physician as directed. Contact primary care physician or report to the closest Emergency Room if condition worsens. Plan of Treatment: Continue with present treatment and follow up plan. Pt is to keep follow up appointment as instructed and take medications as ordered. Assessment: No acute distress noted discharge. Prescriptions: No Action NK Follow ups/Referrals Follow ups/Referrals: Sunil Sorto [STAFF PHYSICIAN] - 09/16/23 1:00 pm Instructions Instructions: Rhabdomyolysis, Finding Treatment for Addiction, Managing Anxiety, Adult, Steps to Quit Smoking Stand Alone Forms: Post Hospital Follow Up Care
== END 2023-08-30 12:00 | disposition home or self-care (01) | DRG 558 ==
LOC: ER 14:12 → ICU 14:12 → OBSVTOIN 15:52 → ICU 16:24
PROVIDERS: ADMIT Internal Medicine; ATTEND Internal Medicine
DX: M62.82 Rhabdomyolysis; E83.42 Hypomagnesemia; R41.82 Altered mental status, unspecified; F19.951 Other psychoactive substance use, unspecified with psychoactive substance-induced psychotic disorder with hallucinations; R00.0 Tachycardia, unspecified; D50.8 Other iron deficiency anemias; F15.90 Other stimulant use, unspecified, uncomplicated; F41.8 Other specified anxiety disorders